=== PATIENT | female | born 1930 | race Caucasian/White ===

== ENCOUNTER → 2017-01-04 | Outpatient (CLI) | payer OTHER, MEDICARE ==
--- NOTE | 2017-01-04 17:46 | DX ---
Portable AP chest. 01/04/2017at 1716 History: Evaluate for possible tuberculosis prior to admission to assisted living. Comparison examination: None available. Findings: No focal infiltrate identified within the lungs bilaterally. Blunting of the right costophr enic angle may be secondary to prior pleural fibrosis or small effusion. The cardiac silhouette is mo derately prominent post median sternotomy and single lead pacemaker placement, with focal enlargement of the left atrium. No features of granulomatous disease identified. Impression: Small right pleural effusion/pleural fibrosis. Prior cardiac intervention. No active card iopulmonary disease identified.
== END ==
LOC: FIMAGING 17:06
PROVIDERS: ATTEND Family Medicine Geriatric Medicine
DX: Z11.1 Encounter for screening for respiratory tuberculosis (principal); J98.4 Other disorders of lung; Z95.0 Presence of cardiac pacemaker

== ENCOUNTER → 2018-04-19 | Outpatient (CLI) | payer OTHER, MEDICARE | LOC: BHFA 10:00 | PROVIDERS: ATTEND Internal Medicine Cardiovascular Disease | DX: I05.9 Rheumatic mitral valve disease, unspecified (principal) ==

== ENCOUNTER → 2018-05-17 | Outpatient (CLI) | payer OTHER, MEDICARE | LOC: FIMAGING 10:16 | PROVIDERS: ATTEND Family Medicine Geriatric Medicine | DX: Z12.31 Encounter for screening mammogram for malignant neoplasm of breast (principal); Z80.3 Family history of malignant neoplasm of breast ==

== ENCOUNTER → 2018-05-31 | Outpatient (CLI) | payer OTHER, MEDICARE | LOC: FIMAGING 14:05 | PROVIDERS: ATTEND Family Medicine Geriatric Medicine | DX: Z13.820 Encounter for screening for osteoporosis (principal); M85.89 Other specified disorders of bone density and structure, multiple sites; R92.8 Other abnormal and inconclusive findings on diagnostic imaging of breast ==

== ENCOUNTER → 2018-11-21 | Outpatient (CLI) | payer OTHER, MEDICARE | END | disposition home or self-care (01) | LOC: FIMAGING 12:43 | PROVIDERS: ATTEND Family Medicine Geriatric Medicine | DX: M16.0 Bilateral primary osteoarthritis of hip (principal) ==

== ENCOUNTER 2019-04-13 16:07 | Emergency (ER) | payer OTHER, MEDICARE ==
--- NOTE | 2019-04-13 16:41 | EDPHY ---
H & P Time Seen by Provider: 04/13/19 16:20 HPI/ROS: CHIEF COMPLAINT: Abnormal labs HISTORY OF PRESENT ILLNESS: Patient is an 81-year-old female who presents emergency department with abnormal labs. The patient states that over the past year she has had a slow decrease in her exercise tolerance. She feels she is mildly short of breath when ambulating or walking up stairs. She has also noted some mild increased weight gain and some distention in her abdomen. The patient has mild pedal edema that has been persistent. No drastic change in her symptoms over the past few weeks. She has no chest pain or shortness of breath currently or recently. No fevers or chills. No cough. No asymmetric leg swelling per her report. Patient states that she is saw Dr. Ontiveros on 04/11/2019. During that visit laboratory studies were ordered. Per the patient, Dr. Ontiveros told the patient that he wanted an ultrasound of her left leg because at times it was asymmetric compared to the right. However, the patient states that she does not have any asymmetry in her legs. She has no leg pain. The swelling has been consistent over the past year. No ultrasound was ordered after the visit. REVIEW OF SYSTEMS: 10 systems were reveiwed and are negative with the exception of the elements mentioned in the history of present illness. Past Medical/Surgical History: Includes hyperlipidemia, hypertension Past surgical history: Mechanical valve, pacer Social history: Patient does not smoke Smoking Status: Never smoked Physical Exam: Vitals noted GENERAL: Well-appearing, in no acute distress, alert. HEENT: Eyes normal to inspection, normal pharynx, no signs of dehydration. NECK: Normal, supple. RESPIRATORY: Clear to auscultation bilaterally, no rales, rhonchi or wheezing. CVS: Regular rate and rhythm, no rubs, murmurs, or gallops. ABDOMEN: Soft, nontender, no organomegaly. Mild distension. No spider veins. BACK: Normal to inspection, no CVA tenderness. SKIN: Normal color, no rash, warm, dry. No pallor. EXTREMITIES: Minimal bilateral pedal edema, lower extremities are symmetric ( measured with tape = 310 bilaterally), no calf tenderness, no Homans sign or cords, no joint swelling. NEURO/PSYCH: Alert and oriented, normal mood and affect, normal motor sensory exam. No obvious cranial nerve deficit. Constitutional: Initial Vital Signs Temperature (C) 36.7 C 04/13/19 16:16 Heart Rate 68 04/13/19 16:16 Respiratory Rate 18 04/13/19 16:16 Blood Pressure 156/68 H 04/13/19 16:16 O2 Sat (%) 95 04/13/19 16:16 O2 Delivery Mode Room Air Allergies/Adverse Reactions: promethazine Allergy (Verified 04/13/19 16:15) Home Medications: Medication Instructions Recorded Coumadin 04/13/19 Crestor 04/13/19 Levothyroxine 04/13/19 Lisinopril/Hctz 10/12.5 mg 04/13/19 Norvasc 10 mg (*) 04/13/19 Medical Decision Making - Diagnostics Imaging Results: Imaging Impressions Chest X-Ray 04/13/19 16:37 Impression: Cardiomegaly with no acute findings. ED Course/Re-evaluation: In the emergency department I reviewed the laboratory studies from yesterday. Of note the patient had elevated troponin of 0.14. The patient also had an elevated BNP of 322. A level of 103 100 suggest heart failure is present. Greater than 300 indicates mild heart failure per the laboratory. I discussed my plan with the patient. I answered all her questions. An IV was placed. Laboratory studies, EKG and chest x-ray were obtained. EKG: Ventricular paced at 62. The patient's troponin is normal. Her chemistry panel is notable for normal creatinine. LFTs are unremarkable. The CBC shows anemia with hematocrit of 32. BNP is 800. Chest x-ray: Cardiomegaly with no other acute disease. No fluid overload noted. Cardiology was paged. I discussed the case with Cardiology. They will see the patient as outpatient. They felt the patient could be safely discharged for the emergency department. I discussed results with the patient. I answered all her questions. He is given warnings prior to leaving. He will return with worsening symptoms. Differential Diagnosis: My differential includes but is not limited to CHF, ACS, acute TN, dissection, aneurysm - Data Points Laboratory Results: Laboratory Results 04/13/19 16:43 04/13/19 16:43 04/13/19 04/13/19 04/13/19 16:47 16:43 16:43 WBC 8.94 10^3/uL 10^3/uL (3.80-9.50) RBC 3.91 10^6/uL L 10^6/uL (4.18-5.33) Hgb 11.2 g/dL L g/dL (12.6-16.3) Hct 33.7 % L % (38.0-47.0) MCV 86.2 fL fL (81.5-99.8) MCH 28.6 pg pg (27.9-34.1) MCHC 33.2 g/dL g/dL (32.4-36.7) RDW 17.3 % H % (11.5-15.2) Plt Count 213 10^3/uL 10^3/uL (150-400) MPV 12.3 fL H fL (8.7-11.7) Neut % (Auto) 70.2 % % (39.3-74.2) Lymph % (Auto) 15.4 % % (15.0-45.0) [place] % (Auto) 9.5 % % (4.5-13.0) Eos % (Auto) 3.7 % % (0.6-7.6) Baso % (Auto) 0.3 % % (0.3-1.7) Nucleat RBC Rel Count 0.0 % % (0.0-0.2) Absolute Neuts (auto) 6.28 10^3/uL 10^3/uL (1.70-6.50) Absolute Lymphs (auto) 1.38 10^3/uL 10^3/uL (1.00-3.00) Absolute Monos (auto) 0.85 10^3/uL H 10^3/uL (0.30-0.80) Absolute Eos (auto) 0.33 10^3/uL 10^3/uL (0.03-0.40) Absolute Basos (auto) 0.03 10^3/uL 10^3/uL (0.02-0.10) Absolute Nucleated RBC 0.00 10^3/uL 10^3/uL (0-0.01) Immature Gran % 0.9 % % (0.0-1.1) Immature Gran # 0.08 10^3/uL 10^3/uL (0.00-0.10) RBC/WBC/PLT Morphology TNP Platelet Estimate TNP Sodium 136 mEq/L mEq/L (135-145) Potassium 4.0 mEq/L mEq/L (3.5-5.2) Chloride 101 mEq/L mEq/L (97-110) Carbon Dioxide 23 mEq/l mEq/l (22-31) Anion Gap 12 mEq/L mEq/L (6-14) BUN 27 mg/dL H mg/dL (7-23) Creatinine 0.7 mg/dL mg/dL (0.6-1.0) Estimated GFR > 60 Glucose 105 mg/dL H mg/dL (70-100) Calcium 9.5 mg/dL mg/dL (8.5-10.4) Total Bilirubin 0.5 mg/dL mg/dL (0.1-1.4) Conjugated Bilirubin 0.2 mg/dL mg/dL (0.0-0.5) Unconjugated Bilirubin 0.3 mg/dL mg/dL (0.0-1.1) AST 23 IU/L IU/L (14-46) ALT 27 IU/L IU/L (9-52) Alkaline Phosphatase 69 IU/L IU/L (38-126) POC Troponin I 0.06 ng/mL ng/mL (0.00-0.08) NT-Pro-B Natriuret Pep 805 pg/mL H pg/mL (0-450) Total Protein 6.6 g/dL g/dL (6.3-8.2) Albumin 4.3 g/dL g/dL (3.5-5.0) Point of Care Test Results: Chemistry 04/13/19 16:47 POC Troponin I 0.06 ng/mL ng/mL (0.00-0.08) Departure - Departure Disposition: Home, Routine, Self-Care Clinical Impression: Abnormal laboratory test Dyspnea Qualifiers: Dyspnea type: dyspnea on exertion Qualified Code(s): R06.09 - Other forms of dyspnea Condition: Good Instructions: Dyspnea (ED) Additional Instructions: Return with increasing shortness of breath, increased leg swelling or pain, or any other concerns. Referrals: Demario Tucker MD [Primary Care Provider] - 5-7 days, call for appt. [facility] [Provider Group] - 2-3 days, call for appt.
[2019-04-13 17:23] LABS: PLATELET COUNT 213 10^3/uL (150-400)
[2019-04-13 18:07] VITALS: BP 148/76
--- NOTE | 2019-04-13 22:13 | CPEKG ---
Test Reason : OPEN Blood Pressure : / mmHG Vent. Rate : 062 BPM Atrial Rate : 000 BPM P-R Int : 288 ms QRS Dur : 138 ms QT Int : 451 ms P-R-T Axes : 000 -55 117 degrees QTc Int : 458 ms Ventricular-paced rhythm Confirmed by Fanta Garzon ([id number]) on 04/13/2019 10:12:30 PM Referred By: Fanta Garzon Confirmed By:Fanta Garzon
== END 2019-04-13 19:10 | disposition home or self-care (01) ==
DX: R06.09 Other forms of dyspnea (principal); Z00.01 Encounter for general adult medical examination with abnormal findings; I51.7 Cardiomegaly; E78.5 Hyperlipidemia, unspecified
CPT/HCPCS: 84484-ER